=== PATIENT | male | born 1980 | race African-American/Black ===

== ENCOUNTER 2022-07-25 14:05 | Emergency (ER) | payer OTHER ==
[~2022-07-25] VITALS: Ht 188 cm; Wt 102.1 kg
[2022-07-25 14:06] VITALS: BP 163/68
== END 2022-07-25 16:37 | disposition home or self-care (01) ==
LOC: EDH 14:05
DX: M79.672 Pain in left foot (principal); Z98.890 Other specified postprocedural states
CPT/HCPCS: 73630